=== PATIENT | female | born 2000 | race Caucasian/White ===

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

== ENCOUNTER 2019-10-08 10:59 | Emergency (ER) | payer OTHER ==
[2019-10-08 11:15] VITALS: BP 111/67
--- NOTE | 2019-10-08 11:29 | UC ---
FLU HPI - HPI Summary HPI Summary: Patient is a 18yo female presenting with nasal congestion, sore throat, dry cough, fever and chills x2 days. Patient denies ear pain. Notes dry cough. Denies sob and wheezing. Denies n/v/d and abd pain. States symptoms worsening and believes she may have the flu. Taking otc medication for symptom relief. - History of Current Complaint Stated Complaint: SORE THROAT Hx Obtained From: Patient Hx Last Menstrual Period: 10/05/19 Pain Intensity: 6 Pain Scale Used: 0-10 Numeric - Allergy/Home Medications Allergies/Adverse Reactions: Allergies Allergy/AdvReac Type Severity Reaction Status Date / Time No Known Allergies Allergy Verified 10/08/19 11:15 Home Medications: Home Medications Levonorgestrel-Ethin Estradiol [Larissia 0.1-20 mg-Mcg] 1 tab PO DAILY 10/08/19 [History Confirmed 10/08/19] PMH/Surg Hx/FS Hx/Imm Hx - Surgical History Surgical History: None - Family History Known Family History: Positive: None, Hypertension - Social History Alcohol Use: None Substance Use Type: None Smoking Status (MU): Never Smoked Tobacco - Immunization History Vaccination Up to Date: Yes Review of Systems All Other Systems Reviewed And Are Negative: Yes Constitutional: Positive: Fever, Chills ENT: Positive: Sore Throat, Sinus Congestion. Negative: Ear Ache Respiratory: Positive: Cough - nonproductive Cardiovascular: Positive: Negative Gastrointestinal: Positive: Negative Musculoskeletal: Positive: Myalgia Neurological: Positive: Headache Physical Exam - Summary Physical Exam Summary: Vital Signs Reviewed: Yes A+Ox3, no distress Eyes: Conjunctiva Clear ENT: Hearing grossly normal TM x 2 clear, moist, uvula midline, no exudate, + pharyngeal erythema Neck: Positive: Supple Respiratory: Positive: No respiratory distress, No accessory muscle use + CTA throughout no w/r Cardiovascular: RRR nl s1, s2 no m/r Musculoskeletal Exam: BARTHOLOMEW x 4 without difficulty Neurological: Positive: Alert Psychological: Positive: age appropriate behavior Skin: Positive: no rash, no ecchymosis Vital Signs: Initial Vital Signs Temp 98.2 F 10/08/19 11:11 Pulse 99 10/08/19 11:11 Resp 14 10/08/19 11:11 BP 111/67 10/08/19 11:11 Pulse Ox 99 10/08/19 11:11 Lab Results 10/08/19 10/08/19 Range/Units 11:22 11:25 Influenza A (Rapid) Pending Influenza B (Rapid) Positive (Negative) Group A Strep Rapid Negative (Negative) Flu Course/Dx - Course Course Of Treatment: Positive rapid flu B. Negative strep test. Educated patient on influenza and Tamiflu patient decided she did prefer to be taking Tamiflu. Instructed to continue with symptomatic treatment and follow up with PCP or [facility] if symptoms persist. Instructed to go to ED with any new or worsening symptoms. Patient voiced understanding and agreed with the treatment plan. - Differential Dx/Diagnosis Provider Diagnosis: Influenza B Discharge ED - Sign-Out/Discharge Documenting (check all that apply): Patient Departure All imaging exams completed and their final reports reviewed: No Studies - Discharge Plan Condition: Stable Disposition: HOME Prescriptions: Oseltamivir CAP* [Tamiflu CAP*] 75 mg PO BID #10 cap Patient Education Materials: Influenza (ED) Referrals: [facility] [Outside] - If Needed Additional Instructions: As discussed, you tested positive for influenza today. Take tamiflu as prescribed. You may continue with over the counter medications for symptom relief. Get plenty of rest and increase your fluid intake. Follow up with your primary care provider or the [facility] listed below if symptoms worsen or do not resolve within 7 days. - Billing Disposition and Condition Condition: STABLE Disposition: Home
[2019-10-09 10:24] LABS: Influenza B Molecular POSITIVE (Negative)
== END 2019-10-08 11:51 | disposition home or self-care (01) ==
LOC: UCCORT 10:59
DX: J10.1 Influenza due to other identified influenza virus with other respiratory manifestations (principal)
CPT/HCPCS: 87651; 99212; G0463